=== PATIENT | male | born 1965 | race Caucasian/White ===

== ENCOUNTER 2022-07-16 12:31 | Emergency (ER) | payer MEDICAID, SELFPAY ==
[2022-07-16 12:35] VITALS: BP 135/83; PULSE 75; RESP 16; TEMP 36.7; O2SAT 99; BMI 24.4
--- NOTE | 2022-07-16 12:42 | ED_ITS ---
HPI - Allergic Reaction General Time Seen by Provider: 12:42 Date Seen: 07/16/22 Chief complaint: Allergic Reaction Stated complaint: Bee stings, allergic Time Seen by Provider: 07/16/22 12:33 Source: patient and RN notes reviewed Mode of arrival: ambulatory Limitations: no limitations History of Present Illness HPI narrative: Nursing staff alerted me to patient arrival with a bee sting reaction. He got stung by some type stinging insects that he thinks may have been some type of wasp/hornet/bee, stung him in the knuckle of his 3rd finger right hand. It is painful any feel some tingling and pressure going up the hand into the wrist now. 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 He started to feel a little sense of swelling in his throat but has noticed no voice changes, no difficulty breathing, no nausea vomiting, no rash. He had a prior spell where he was stung by a paper wasp and felt some chest tightness no throat closing. He used Benadryl at that time which resolved the symptoms. His DrAj Subsequently gave him an EpiPen at a later date. He was not seen for medical evaluation at that time. He did not have any Benadryl nor an EpiPen with him. Given he had had a prior reaction he had somebody drive him here. Onset (ago): minute(s) Exposure: insect bite Related Data Home Medications Medication Instructions Recorded Confirmed albuterol sulfate 90 mcg/actuation inhalation 07/16/22 aerosol inhaler (Ventolin HFA) buprenorphine 8 mg-naloxone 2 mg film 07/16/22 sublingual film (Suboxone) levothyroxine 100 mcg tablet mcg 07/16/22 levothyroxine 112 mcg tablet mcg 07/16/22 omeprazole 40 mg capsule,delayed mg 07/16/22 release rosuvastatin 10 mg tablet mg 07/16/22 Previous Rx's Medication Instructions Recorded epinephrine 0.3 mg/0.3 mL 0.3 mg (0.3 mL) IM Q5-15M PRN #2 ea 07/16/22 injection, auto-injector (EpiPen) prednisone 20 mg tablet 20 mg PO DAILY #3 tabs 07/16/22 Allergies Allergy/AdvReac Type Severity Reaction Status Date / Time bees Allergy Uncoded 07/16/22 12:39 Review of Systems Status of ROS Reports: 6 or more systems reviewed and unremarkable except as noted in History and below [facility] Social History Smoking Status: Current some day smoker How often do you have a drink containing alcohol: never AUDIT-C Alcohol total score: 0 Non-prescribed substance use: denies use Exam Const: Vital Signs, click to edit/add: Vital Signs - 24 hr 07/16/22 12:35 07/16/22 14:40 Temperature 98.1 F Pulse Rate [Right Pulse Oximeter] 75 58 L Respiratory Rate 16 18 Blood Pressure [Ri ght Upper Arm] 135/83 121/85 Pulse Oximetry 99 97 Oxygen Delivery Me thod Room Air Room Air Documenting provider has reviewed patient's vital signs: yes Common normals: no apparent distress, oriented x3, no limitations, healthy appearing, alert and well nourished General appearance: cooperative, comfortable and well kempt Nutritional appearance: thin HENMT: Common normals: normocephalic, head/scalp atraumatic, hearing grossly normal bilaterally, external nose normal, nasal mucous membranes and turbinates normal, moist oral mucous membranes, oropharynx normal, dentition normal and gingiva normal Head and scalp: normocephalic and atraumatic Nose: external nose normal and nasal mucous membranes and turbinates normal Eye: Common normals: PERRL, EOMs intact bilaterally, conjunctivae normal and no scleral icterus Conjunctiva: conjunctiva(e) normal Pupil: PERRL Neck & C-Spine: Common normals: full ROM, no lymphadenopathy, supple, no meningeal signs, no JVD and thyroid normal Thyroid: thyroid normal Resp: Common normals: normal respiratory effort, no retractions, no use of accessory muscles and clear to auscultation bilaterally Auscultation: clear to auscultation bilaterally Cardio: Common normals: no JVD, regular rate, regular rhythm, S1 normal heart sound, S2 normal heart sound, no gallops, no clicks and no murmurs Rate: regular rate Rhythm: regular rhythm Heart sounds: S1 normal and S2 normal GI: Common normals: Normal to inspection, nondistended, normoactive bowel sounds present, soft to palpation, non-tender, no hepatosplenomegaly and no masses Palpation: soft and no hepatosplenomegaly Extremity: Other: Has a little mild swelling around the PIP of the involved finger. No retained foreign body. No other swelling noted. There is just mildly pinkish color change. Neuro: Common normals: oriented x3 and gait normal Sensorium/orientation: alert Meningeal signs: no meningeal signs Speech: speech normal Psych: Appearance: well kempt Course Course Hospital Course: IV will be established, will give 25 mg IV Benadryl and watch him quite closely to make sure that that is sufficient. This time I do not feel he needs epinephrine but will have low threshold to provide this. Will get some ice on it this finger. Via on cardiac monitoring and pulse oximetry. Can re-dose with subsequent Benadryl if the 25 mg is not sufficient. He is wanting to get to baseline and work, thus, we will try to minimize sedative medicines for him. Reevaluation(s) Reevaluation #1: Patient re-evaluated, feeling slightly tired from the Benadryl but no further throat symptoms, no respiratory symptoms. Is icing his finger, is still sore at the bite yobany. Inspection of the area reveals no increased erythema or swelling. Still has good range of motion of the finger. Reviewed that he may be symptomatic with some discomfort at the area for hours to days. He is wondering when he can go. Reviewed that typically will observe anywhere from 2- 4 hours. 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 He did not require epinephrine. If he continues to show stability would consider allowing him to leave in 2 hours as he states he will not be far away and will not be alone. Time: 13:10 Reevaluation #2: Patient is stable without return of symptoms, requesting to go. Will check to make sure he does not need his EpiPen renewed. Will certainly do so if he needs this. Time: 14:37 Vital Signs Vital signs: Initial Vital Signs Temperature 98.1 F 07/16/22 12:35 Temperature Source Temporal Artery Scan 07/16/22 12:35 Pulse Rate 75 07/16/22 12:35 Pulse Rhythm 07/16/22 12:35 Respiratory Rate 16 07/16/22 12:35 Blood Pressure 135/83 07/16/22 12:35 Blood Pressure Mean 100 07/16/22 12:35 Blood Pressure Position Sitting 07/16/22 12:35 Pulse Oximetry 99 07/16/22 12:35 Oxygen Delivery Method 07/16/22 12:35 Vital Signs Temperature 98.1 F 07/16/22 12:35 Pulse Rate 75 07/16/22 12:35 Respiratory Rate 16 07/16/22 12:35 Blood Pressure 135/83 07/16/22 12:35 Pulse Oximetry 99 07/16/22 12:35 Oxygen Delivery Method 07/16/22 12:35 Temperature 98.1 F 07/16/22 12:35 Pulse Rate 58 L 07/16/22 14:40 Respiratory Rate 18 07/16/22 14:40 Blood Pressure 121/85 07/16/22 14:40 Pulse Oximetry 97 07/16/22 14:40 Oxygen Delivery Method 07/16/22 14:40 Critical Care Time Critical Care Time Critical Care Time: No Discharge Plan Discharge Clinical Impression: Allergic reaction, Insect bite Patient Disposition: Home, Self-Care Condition: Stable Instructions: Insect Bite or Sting (ED), Anaphylaxis (ED) Additional Instructions: Ice and elevate this finger for the next few days as able to to help decrease pain and swelling. Use Benadryl per package instructions while you are still having symptoms of swelling and discomfort, this will help block any subsequent allergic reaction. Take prednisone as prescribed, take with food. Prednisone will help diminish swelling an side effects of the insect sting. Review handouts, if any concerns or progression of symptomatology, please seek re- evaluation. Recommend carrying Benadryl as well as your EpiPen with you. Activity Level: Activity as Tolerated Prescriptions: New prednisone 20 mg tablet 20 mg PO DAILY Qty: 3 0RF epinephrine [EpiPen] 0.3 mg/0.3 mL auto-injector 0.3 mg IM Q5-15M PRNQty: 2 0RF Rx Instructions: do not exceed 3 doses per episode No Action omeprazole 40 mg capsule,delayed release(DR/EC) Label Comments: TAKE 1 CAPSULE BY MOUTH DAILY levothyroxine 100 mcg tablet Label Comments: TAKE 1 TABLET BY MOUTH EVERY MORNING BEFORE BREAKFAST. albuterol sulfate [Ventolin HFA] 90 mcg/actuation HFA aerosol inhaler INHALATION Label Comments: INHALE 2 PUFFS BY MOUTH EVERY 4 HOURS NEEDED levothyroxine 112 mcg tablet rosuvastatin 10 mg tablet buprenorphine-naloxone [Suboxone] 8-2 mg film Label Comments: PLACE 1 FILM UNDER TONGUE EVERY MORNING AND EVERY EVENING Follow Up/Referrals: Thang Baez MD [Primary Care Provider] - Stand Alone Forms: [employer] Info Instructions
[2022-07-16] MEDS: diphenhydrAMINE 50 MG/ML inj 25 MG IVP (12:50)
[2022-07-16 14:40] VITALS: BP 121/85; PULSE 58; RESP 18; O2SAT 97
== END 2022-07-16 14:49 | disposition home or self-care (01) ==
PROVIDERS: Emergency Provider Family Medicine; PCP Family Medicine
DX: S60.462A Insect bite (nonvenomous) of right middle finger, initial encounter (principal); T63.441A Toxic effect of venom of bees, accidental (unintentional), initial encounter; Y92.017 Garden or yard in single-family (private) house as the place of occurrence of the external cause
CPT/HCPCS: 96374; 99284; J1200

== ENCOUNTER 2022-09-12 15:07 | Outpatient (CLI) | payer MEDICAID, SELFPAY ==
[2022-09-12 11:43] LABS: Chloride* 102 mmol/L (96-114)
[2022-09-12 11:44] LABS: Potassium* 4.1 mmol/L (3.6-5.1); Sodium* 139 mmol/L (135-149)
[2022-09-12 11:46] LABS: Alanine Aminotransferase* 12 U/L (4-50); Alkaline Phosphatase* 67 U/L (40-150); Aspartate Amino Transferase* 24 U/L (12-35); Bilirubin Total* 0.5 mg/dL (0.1-1.5); Blood Urea Nitrogen* 13 mg/dL (7-30); Carbon Dioxide* 32 mmol/L (20-32); Cholesterol* 123 mg/dL (90-199); Estimated Glomerular Filt Rate 88 ml/min; Glucose* 103 mg/dL (60-115); Total Protein* 7.3 g/dL (6.0-8.3)
[2022-09-12 11:47] LABS: Calcium* 9.5 mg/dL (8.4-10.6); HDL Cholesterol* 47 mg/dL (>=40); LDL Cholesterol Calculated 58 mg/dL (<100); Triglycerides* 89 mg/dL (40-149)
[2022-09-12 12:17] LABS: PSA Screen* 0.44 ng/mL (0.10-4.00)
[2022-09-12 12:57] LABS: Free T4 Free Thyroxine* 1.31 ng/dL (0.70-1.85)
== END 2022-09-12 15:08 | disposition home or self-care (01) ==
PROVIDERS: PCP Family Medicine; Visit Provider Family Medicine
DX: Z00.00 Encounter for general adult medical examination without abnormal findings (principal); E78.5 Hyperlipidemia, unspecified; E03.9 Hypothyroidism, unspecified; Z12.5 Encounter for screening for malignant neoplasm of prostate
CPT/HCPCS: 80053; 80061; 84153; 84439; 84443

== ENCOUNTER 2023-10-08 07:20 | Outpatient (CLI) | payer MEDICAID, SELFPAY ==
--- OUTSIDE RECORDS SUMMARY | 2023-10-08 22:39 | XMS_ITS | Continuity of Care Document ---
Author Name Unknown Organization Z [facility] Address [address] [place] [address] Phone Care Team Providers Care Cigarette Catcher Name Role Phone Ben Patricia MD Unavailable Unavailab le Allergies, Adverse Reactions, Alerts Substance Reaction Status Criticality No Known allergies Procedures Procedure Date Office/Outpatient Visit,[facility], [facility] 2013 Office/Outpatient Visit,[facility], [facility] 2011 Advance Directives Directive Yes / No Effective Date File Name No Information Encounters Encounter Description Practice Location Reason(s) For Visit Diagnoses Date Provider Providers Copied on Encounter Z [facility], [address] [place] [address], [facility], tel:[phone] [facility] Jakob Green No Information 4 [place]. [facility], [address] [place] [address], [id number] , [place]. tel:[phone] Office/Outpat ient Visit,Est, Mod Z [facility], [address] [place] [address], [facility], [place] tel:[phone] [facility] No Information 4 Panmike Librado. [facility], [address], [id number] , [place]. tel:[phone] Referring Provider: Thang Hollis, [facility] [address], [address]. tel:[phone] Office/Outpat ient Visit,New, Mod Z [facility], [address], [place], [address], [place] tel:[phone] [facility] No Information 2 Sha [place]. [facility], [address], [address], [place], [place], [id number] , [place]. tel:[phone] Referring Provider: Thang Hollis, [facility] [address] [place] [address], [id number]. tel:[phone] Family History Family Member Type Diagnosis Age At Onset No Information Payers Payer name Insurance type Covered libertarian ID Authorgersona tiamara(s) Medical Assistance [facility] [id number] Social History Type Description Quantity Date Captured Comments Sex Male Smoking Status No Information Chief Complaint And Reason For Visit No Information Reason For Referral Reason For Referral No Information History Of Present Illness Encounter Date Complaint History Of Prese nt Illness No Information Functional Status Date Functional Assessmen t No Information Instructions Date Instruction Additional Infor mation No Information Assessments Type Assessment Date No Information Patient Care Teams Name Effective Dates (start - stop) Status Members No Information
--- OUTSIDE RECORDS SUMMARY | 2023-10-08 22:39 | XMS_ITS | Continuity of Care Document ---
Author Name Unknown Organization [facility] Address [address] [place] [address] Phone Care Team Providers Care Pharmacy Laboratory Technician Name Role Phone Yunier Greenwood MD Unavailable Unavailable Allergies, Adverse Reactions, Alerts Substance Reaction Status Criticality No Known Drug Allergies Active No I nformation Medications Medication Instructions Dosage Effective Dates (start - stop) Status Comments omeprazole 40 mg capsule,delayed release take 1 capsule by oral route every day before a meal 40 MG - Active Procedures Procedure Date Est Pt Eval 15 Min Pain Assessment And Follow Up Plan Docum ented Est Pt Eval 25 Min Pain Assessment And Follow Up Plan Docum ented Inj Anes Epidur; Lumb/sac 1 Le 15 Inj Anes Epidur; Lumb/sac 1 Le 15 Est Pt Eval 25 Min Pain Assessment And Follow Up Plan Docum ented Inj Anes Epidur; Lumb/sac 1 Le 14 Inj Anes Epidur; Lumb/sac 1 Le 14 Inj Anes Epidur; Lumb/sac 1 Le 14 Mod cs by same phys, 5 yrs + Est Pt Eval 25 Min Est Pt Eval 25 Min Inj Anes Epidur; Lumb/sac 1 Le 14 Inj Anes Epidur; Lumb/sac 1 Le 14 Inj Anes Epidur; Lumb/sac 1 Le 14 Epidurography Mod cs by same phys, 5 yrs + Psychotherapy, 60 minutes with patient o r family Psychotherapy, 60 minutes with patient o r family Psychotherapy, 60 minutes with patient o r family Psychotherapy, 60 minutes with patient o r family Psychiatric Diagnostic Evaluation Est Pt Eval 25 Min Phys Therap Eval Therapeutic Activities Offic/outpt E&m Estab Mod-hi 2 14 Offic/outpt E&m Estab Mod-hi 2 11 Offic/outpt E&m Estab Mod-hi 2 11 Lumbar MB single level Lumbar MB addl level Mod cs by same phys, 5 yrs + Fluoro Needle - Spine Marcaine (1 mL = 1 Unit) IV Admin Kit 1000 LR (Ringers) Offic/outpt E&m Estab Mod-hi 2 11 Drug Screen: Mx Drug Classes Offic/outpt E&m Estab Low-mod 1 Lo Osm Contr Mat (200-249mg) 1000 LR (Ringers) IV Admin Kit Inj Anes Facet Jt; Lumb/sac-3rd Level Mn Inj Anes Facet Jt; Lumb/sac-2nd Level Mn Inj Anes Facet Jt; Lumb/sac-1st Level Mn Mod cs by same phys, 5 yrs + Offic/outpt E&m Estab Mod-hi 2 11 Inj Anes Facet Jt; Lumb/sac-3rd Level Mn Inj Anes Facet Jt; Lumb/sac-1st Level Mn Inj Anes Facet Jt; Lumb/sac-2nd Level Mn Mod cs by same phys, 5 yrs + Lo Osm Contr Mat (200-249mg) Marcaine (1 mL = 1 Unit) 1000 LR (Ringers) IV Admin Kit Offic/outpt E&m Estab Low-mod 1 Offic/outpt E&m Estab Mod-hi 2 11 Offic Cons New/estab Mod 40 Mi 11 Inj Anes Facet Jt; Lumb/sac-3rd Level Ja Inj Anes Facet Jt; Lumb/sac-2nd Level Ja Inj Anes Facet Jt; Lumb/sac-1st Level Ja Mod cs by same phys, 5 yrs + Marcaine (1 mL = 1 Unit) Lo Osm Contr Mat (200-249mg) Intravenous infusion, for therapy, proph ylaxis, or Versed (1 Mg = 1 Unit) 1000 LR (Ringers) IV Admin Kit IV Start Kit Offic/outpt E&m Estab Mod-hi 2 11 1 Limb EMG Motor NCV W/F-wave Sensory NCV H-reflex Amp Study; Gastnem/so 11 Inj Anes Facet Jt; Lumb/sac-3rd Level De Inj Anes Facet Jt; Lumb/sac-1st Level De Inj Anes Facet Jt; Lumb/sac-2nd Level De Mod cs by same phys, 5 yrs + Depomedrol 80mg Marcaine (1 mL = 1 Unit) Intravenous infusion, for therapy, proph ylaxis, or IV Admin Kit IV Start Kit 1000 LR (Ringers) Fentanyl Citrate (2 ml = 1 Unit) 2009 Versed (1 Mg = 1 Unit) Offic/outpt E&m Estab Mod-hi 2 10 Offic/outpt E&m Estab Mod-hi 2 10 Epid/SAB Lumbosacral Epidurography Marcaine (1 mL = 1 Unit) Lo Osm Contr Mat (200-249mg) Depomedrol 80mg Needle Only Sterile Any Size Epidural Tray Offic Cons New/estab Mod-hi 60 10 Advance Directives Directive Yes / No Effective Date File Name No Information Encounters Encounter Description Practice Location Reason(s) For Visit Diagnoses Date Provider Providers Copied on Encounter [facility], [address], [place], [address], [place] tel:[phone] [facility] No Information 5 Krystyna Faye. [address], [place], [place], [address], [place]. tel:[phone] Referring Provider: Librado BAHENA, [address] [place], [address]. tel:[phone] Est Pt Eval 15 Min [facility], [facility], [address], [place], [address], [place] tel:[phone] [facility] No Information 5 Antwan Live. [address], [place], [place], [address], [place]. tel:[phone] Referring Provider: Librado BAHENA, [address] [place], [address]. tel:[phone] Est Pt Eval 25 Min [facility], [facility], [address], [place], [address], [place] tel:[phone] [facility] No Information 5 Leila Calle. [address], [place], [address], [place]. tel:[phone] Referring Provider: Librado BAHENA, [address] [facility], [place], [address]. tel:[phone] [facility], [address], [place], [address], [place] tel:[phone] [facility] No Information 5 [facility]. [address], [place], [place], [address], [place]. tel:[phone] Referring Provider: Yunier Faye, [address], [place], [address] . tel:[phone] [facility], [facility], [address], [place], [place], [address], [place] tel:[phone] [facility] [place] No Information 5 Krystyna Faye. [address], [place], [place], [address], [place]. tel:[phone] Referring Provider: Librado BAHENA, [address] [facility] [place], [place], [address]. tel:[phone] Est Pt Eval 25 Min [facility], [facility], [address], [place], [place], [address], [place] tel:[phone] [facility] No Information 5 Leila Calle. [address], [address], [place], [address], [place]. tel:[phone] Referring Provider: Librado BAHENA, [address] [facility] [place], [place], [address]. tel:[phone] [facility], [address], [place], [address], [place] tel:[phone] [facility] [place] No Information 4 Krystyna Faye. [address], [place], [place], [address], [place]. tel:[phone] Referring Provider: Yunier Faye, [address], [place], [address] . tel:[phone] [facility], [address], [place], [place], [address], [place] tel:[phone] [facility] [place] No Information 4 Krystyna Faye. [address], [place], [place], [address], [place]. tel:[phone] Referring Provider: Librado BAHENA, [address] [facility] [place], [place], [address]. tel:[phone] Est Pt Eval 25 Min [facility], [address], [place], [place], [address], [place] tel:[phone] [facility] No Information 4 Ricki Wolf. [address] [place], [address], [place]. Referring Provider: Librado BAHENA, [address] [facility] [place], [place], [address]. tel:[phone] Est Pt Eval 25 Min [facility], [address], [place], [place], [address], [place] tel:[phone] [facility] No Information 4 Ricki Wolf. [address] [place], [address], [place]. Referring Provider: Librado BAHENA, [address] [facility], [place], [address]. tel:[phone] [facility], [address], [place], [address], [place] tel:[phone] [facility] [place] No Information 4 Krystyna Faye. [address], [place], [place], [address], [place]. tel:[phone] Referring Provider: Yunier Faye, [address], [place], [address] . tel:[phone] [facility], [facility], [address], [place], [place], [address], [place] tel:[phone] [facility] [place] No Information 4 Krystyna Faye. [address], [place], [place], [address], [place]. tel:[phone] Referring Provider: Librado BAHENA, [address] [facility] [place], [place], [address]. tel:[phone] Psychotherapy , 60 minutes with patient or family [facility], [address], [place], [place], [address], [place] tel:[phone] [facility] No Information 4 Stan Milo. [address], [place], [place], [address], [place]. tel:[phone] Referring Provider: Librado BAHENA, [address] [facility] [place], [place], [address]. tel:[phone] Psychotherapy , 60 minutes with patient or family [facility], [facility], [address], [place], [place], [address], [place] tel:[phone] [facility] No Information 4 Stan Milo. [address], [place], [place], [address], [place]. tel:[phone] Referring Provider: Librado BAHENA, [address] [facility], [place], [address]. tel:[phone] Psychotherapy , 60 minutes with patient or family [facility], [address], [place], [place], [address], [place] tel:[phone] [facility] No Information 0 -201 4 Stan Milo. [address], [place], [place], [address], [place]. tel:[phone] Referring Provider: Librado BAHENA, [address] [facility], [place], [address]. tel:[phone] Psychotherapy , 60 minutes with patient or family [facility], [address], [place], [place], [address], [place] tel:[phone] [facility] No Information 4 Stan Milo. [address], [place], [place], [address], [place]. tel:[phone] Referring Provider: Librado BAHENA, [address] [facility], [place], [address]. tel:[phone] Psychiatric Diagnostic Evaluation [facility], [address], [place], [place], [address], [place] tel:[phone] [facility] No Information 4 Stan Milo. [address], [place], [place], [address], [place]. tel:[phone] Referring Provider: Librado BAHENA, [address] [facility], [place], [address]. tel:[phone] Est Pt Eval 25 Min [facility], [facility], [address], [place], [place], [address], [place] tel:[phone] [facility] No Information 4 No Information Referring Provider: Librado BAHENA, [address] [facility] [place], [place], [address]. tel:[phone] [facility], [facility], [address], [place], [place], [address], [place] tel:[phone] [facility] No Information Kandis Miller. [address], [place], [place], [address], [place]. tel:[phone] Referring Provider: Librado BAHENA, [address] [facility], [place], [address]. tel:[phone] Offic/outpt E&m Estab Mod-hi 2 [facility], [facility], [address], [place], [place], [address], [place] tel:[phone] [facility] No Information Ricki Wolf. [address] [place], [address], [place]. Referring Provider: Librado BAHENA, [address] [place], [address]. tel:[phone] Offic/outpt E&m Estab Mod-hi 2 [facility], [facility], [address], [place], [place], [address], [place] tel:[phone] [facility] No Information 1 Ricki Wolf. [address] [place], [address], [place]. Referring Provider: Charles Cordova, [address] [place], [address]. tel:[phone] Offic/outpt E&m Estab Mod-hi 2 [facility], [address], [place], [place], [address], [place] tel:[phone] [facility] No Information 1 Tam Leslie. [address], [place], [address], [place]. tel:[phone] Referring Provider: Charles Cordova, [address] [place], [address]. tel:[phone] [facility], [address], [place], [place], [address], [place] tel:[phone] [facility] No Information 1 Krystyna Faye. [address], [place], [place], [address], [place]. tel:[phone] Referring Provider: Charles Cordova, [address] [place], [address]. tel:[phone] Offic/outpt E&m Estab Mod-hi 2 [facility], [address], [place], [place], [address], [place] tel:[phone] [facility] No Information 1 Ricki Wolf. [address], [place], [address], [place]. Referring Provider: Charles Cordova, [address] [place], [address]. tel:[phone] Offic/outpt E&m Estab Low-mod [facility], [address] [facility] [address], [place], [place], [address], [place] tel:[phone] [facility] No Information 1 Ricki Wolf. [address] [place] [address], [address], [place]. Referring Provider: Charles Cordova, [address] [place] [address], [address]. tel:[phone] [facility], [facility], [address] [facility] [address], [place], [address], [place] tel:[phone] [facility] No Information 1 Krystyna Faye. [address], [place], [place], [address], [place]. tel:[phone] Referring Provider: Charles Cordova, [address] [place] [address], [address]. tel:[phone] Offic/outpt E&m Estab Mod-hi 2 [facility], [facility], [address], [address], [place] tel:[phone] [facility] No Information 1 Ricki Wolf. [address] [place] [address], [address], [place]. Referring Provider: Charles Cordova, [address] [place] [address], [address]. tel:[phone] Offic/outpt E&m Estab Low-mod [facility], [facility], [address] [facility] [address], [place], [place], [address], [place] tel:[phone] [facility] No Information 1 Ricki oWlf. [address] [place] [address], [address], [place]. Referring Provider: Charles Cordova, [address] [place] [address], [address]. tel:[phone] Offic/outpt E&m Estab Mod-hi 2 [facility], [facility], [address] [place], [address], [place] tel:[phone] [facility] No Information 1 Ricki Wolf. [address] [place] [address], [address], [place]. Referring Provider: Charles Cordova, [address] [place] [address], [address]. tel:[phone] Offic Cons New/estab Mod 40 Mi [facility], [facility], [address], [place], [place], [address], [place] tel:[phone] [facility] No Information 1 Ricki Wolf. [address] [place] [address], [address], [place]. Referring Provider: Charles Cordova, [address] [place] [address], [address]. tel:[phone] [facility], [facility], [address], [place], [place], [address], [place] tel:[phone] [facility] No Information 1 Krystyna Faye. [address], [place], [place], [address], [place]. tel:[phone] Referring Provider: Charles Cordova, [address] [place] [address], [address]. tel:[phone] Offic/outpt E&m Estab Mod-hi 2 [facility], [facility], [address] [facility] [address], [place], [place], [address], [place] tel:[phone] [facility] No Information 1 Ricki Wolf. [address] [place] [address], [address], [place]. Referring Provider: Charles Cordova, [address] [place] [address], [address]. tel:[phone] [facility], [facility], [address], [place], [place], [address], [place] tel:[phone] [facility] No Information 1 Ricki Milligan Luciano. [address] [place], [address], [place]. Referring Provider: Charles Cordova, [address] [place] [address], [address]. tel:[phone] [facility], [facility], [address], [place], [place], [address], [place] tel:[phone] [facility] No Information 0 Krystyna Faye. [address] [facility] [address], [place], [place], [address], [place]. tel:[phone] Referring Provider: Charles Cordova, [address] [place] [address], [address]. tel:[phone] Offic/outpt E&m Estab Mod-hi 2 [facility], [facility], [address] [facility] [address], [place], [place], [address], [place] tel:[phone] [facility] No Information 0 Ricki Milligan Luciano. [address] [place] [address], [address], [place]. Referring Provider: Charles Cordova, [address] [place] [address], [address]. tel:[phone] Offic/outpt E&m Estab Mod-hi 2 [facility], [facility], [address] [facility] [address], [place], [address], [place] tel:[phone] [facility] No Information 0- 0 Ricki Wolf. [address] [place] [address], [address], [place]. Referring Provider: Charles Cordova, [address] [place], [address]. tel:[phone] [facility], [address] [facility] [address], [place], [place], [address], tel:[phone] [facility] No Information 0-201 0 Krystyna Faye. [address], [place], [place], [address], [place]. tel:[phone] Referring Provider: Charles Cordova, [address] [place] [address], [address]. tel:[phone] Offic Cons New/estab Mod-hi 60 [facility], [address] [facility] [address], [place], [place], [address], tel:[phone] [facility] No Information 7-201 0 Ricki Chel Luciano. [address] [place] [address], [address], [place]. Referring Provider: Charles Cordova, [address] [place] [address], [address]. tel:[phone] Family History Family Member Type Diagnosis Age At Onset N/A Problem (finding) No Significant Family H istory Payers Payer name Insurance type Covered constitution party ID Authoriza tiamara(s) [facility]-Medicaid [id number] Social History Type Description Quantity Date Captured Comments Sex Male Smoking Status No Information Chief Complaint And Reason For Visit No Information Reason For Referral Reason For Referral No Information Plan Of Treatment Date Type Action Status Future Order: Lab Order Point Of Care Testing (with THC) (POCT-THC), Collected on: Ordered History Of Present Illness Encounter Date Complaint History Of Prese nt Illness No Information Functional Status Date Functional Assessmen t No Information Instructions Date Instruction Additional Infor vandanaion Epidural Steroid Injection educa tion Assessments Type Assessment Date No Information Patient Care Teams Name Effective Dates (start - stop) Status Members No Information
== END 2023-10-08 07:21 | disposition home or self-care (01) ==
LOC: NFLDREF 22:37
PROVIDERS: PCP Family Medicine; Referring Provider Family Medicine; Visit Provider Family Medicine
DX: E03.9 Hypothyroidism, unspecified (principal); E78.5 Hyperlipidemia, unspecified
CPT/HCPCS: 80053; 80061; 84439; 84443

== ENCOUNTER 2023-11-21 08:02 | Outpatient (CLI) | payer MEDICAID, SELFPAY ==
--- OUTSIDE RECORDS SUMMARY | 2023-11-21 08:04 | XMS_ITS | Continuity of Care Document ---
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 [address], [place], [place], [address], [place]. tel:[phone] Referring Provider: Librado BAHENA, [address] [place], [address]. tel:[phone] Est Pt Eval 15 Min [facility], [facility], [address] [facility] [address], [place], [address], [place] tel:[phone] [facility] No Information 5 Antwan Live. [address], [address], [place], [place], [address], [place]. tel:[phone] Referring Provider: Librado BAHENA, [address] [place], [address]. tel:[phone] Est Pt Eval 25 Min [facility], [facility], [address], [place], [address], [place] tel:[phone] [facility] No Information 5 Leila Calle. [address] [facility], [place], [address], [place]. tel:[phone] Referring Provider: Librado BAHENA, [address] [facility], [place], [address]. tel:[phone] [facility], [address], [place], [address], [place] tel:[phone] [facility] No Information 5 [facility]. [address], [place], [place], [address], [place]. tel:[phone] Referring Provider: Yunier Faye, [address], [place], [address] . tel:[phone] [facility], [facility], [address], [place], [place], [address], [place] tel:[phone] [facility] [place] No Information 5 Krystyna Faye. [address], [place], [place], [address], [place]. tel:[phone] Referring Provider: Librado BAHENA, [address] [facility] [place], [place], [address]. tel:[phone] Est Pt Eval 25 Min [facility], [facility], [address], [place], [place], [address], [place] tel:[phone] [facility] No Information 5 Leila Calle. [address], [place], [place], [address], [place]. tel:[phone] Referring Provider: Librado BAHENA, [address] [facility] [place], [place], [address]. tel:[phone] [facility], [address], [place], [address], [place] tel:[phone] [facility] No Information 4 Krystyna Faye. [address], [place], [place], [address], [place]. tel:[phone] Referring Provider: Yunier Faye, [address], [place], [address] . tel:[phone] [facility], [address], [place], [place], [address], [place] tel:[phone] [facility] [place] No Information 4 Krystyna Faye. [address], [place], [place], [address], [place]. tel:[phone] Referring Provider: Librado BAHENA, [address] [facility] [place], [place], [address]. tel:[phone] Est Pt Eval 25 Min [facility], [address], [place], [place], [address], [place] tel:[phone] [facility] No Information 4 Ricki Wolf. [address] [place], [address], [place]. Referring Provider: Librado BAHENA, [address] [facility] [place], [place], [address]. tel:[phone] Est Pt Eval 25 Min [facility], [address], [place], [place], [address], [place] tel:[phone] [facility] No Information 4 Ricki Wolf. [address] [place], [address], [place]. Referring Provider: Librado BAHENA, [address] [facility], [place], [address]. tel:[phone] [facility], [address], [place], [address], [place] tel:[phone] [facility] [place] No Information 4 Krystyna Faye. [address], [place], [place], [address], [place]. tel:[phone] Referring Provider: Yunier Faye, [address], [place], [address] . tel:[phone] [facility], [facility], [address], [place], [place], [address], [place] tel:[phone] [facility] [place] No Information 4 Krystyna Faye. [address], [place], [place], [address], [place]. tel:[phone] Referring Provider: Librado BAHENA, [address] [facility] [place], [place], [address]. tel:[phone] Psychotherapy , 60 minutes with patient or family [facility], [address], [place], [place], [address], [place] tel:[phone] [facility] No Information 4 Stan Milo. [address], [place], [place], [address], [place]. tel:[phone] Referring Provider: Librado BAHENA, [address] [facility] [place], [place], [address]. tel:[phone] Psychotherapy , 60 minutes with patient or family [facility], [facility], [address], [place], [place], [address], [place] tel:[phone] [facility] No Information 4 Stan Milo. [address], [place], [place], [address], [place]. tel:[phone] Referring Provider: Librado BAHENA, [address] [facility], [place], [address]. tel:[phone] Psychotherapy , 60 minutes with patient or family [facility], [address], [place], [place], [address], [place] tel:[phone] [facility] No Information 0 -201 4 Stan Milo. [address], [place], [place], [address], [place]. tel:[phone] Referring Provider: Librado BAHENA, [address] [facility], [place], [address]. tel:[phone] Psychotherapy , 60 minutes with patient or family [facility], [address], [place], [place], [address], [place] tel:[phone] [facility] No Information 4 Stan Milo. [address], [place], [place], [address], [place]. tel:[phone] Referring Provider: Librado BAHENA, [address] [facility], [place], [address]. tel:[phone] Psychiatric Diagnostic Evaluation [facility], [address], [place], [place], [address], [place] tel:[phone] [facility] No Information 4 Stan Milo. [address], [place], [place], [address], [place]. tel:[phone] Referring Provider: Librado BAHENA, [address] [facility], [place], [address]. tel:[phone] Est Pt Eval 25 Min [facility], [facility], [address], [place], [place], [address], [place] tel:[phone] [facility] No Information 4 No Information Referring Provider: Librado BAHENA, [address] [facility] [place], [place], [address]. tel:[phone] [facility], [facility], [address], [place], [place], [address], [place] tel:[phone] [facility] No Information Kandis Miller. [address], [place], [place], [address], [place]. tel:[phone] Referring Provider: Librado BAHENA, [address] [facility], [place], [address]. tel:[phone] Offic/outpt E&m Estab Mod-hi 2 [facility], [facility], [address], [place], [place], [address], [place] tel:[phone] [facility] No Information Ricki Wolf. [address] [place], [address], [place]. Referring Provider: Librado BAHENA, [address] [place], [address]. tel:[phone] Offic/outpt E&m Estab Mod-hi 2 [facility], [facility], [address], [place], [place], [address], [place] tel:[phone] [facility] No Information 1 Ricki Wolf. [address] [place], [address], [place]. Referring Provider: Charles Cordova, [address] [place], [address]. tel:[phone] Offic/outpt E&m Estab Mod-hi 2 [facility], [address], [place], [place], [address], [place] tel:[phone] [facility] No Information 1 Tam Leslie. [address], [place], [address], [place]. tel:[phone] Referring Provider: Charles Cordova, [address] [place], [address]. tel:[phone] [facility], [address], [place], [place], [address], [place] tel:[phone] [facility] No Information 1 Krystyna Faye. [address], [place], [place], [address], [place]. tel:[phone] Referring Provider: Charles Cordova, [address] [place], [address]. tel:[phone] Offic/outpt E&m Estab Mod-hi 2 [facility], [address], [place], [place], [address], [place] tel:[phone] [facility] No Information 1 Ricki Wolf. [address] [facility], [place], [address], [place]. Referring Provider: Charles Cordova, [address] [place], [address]. tel:[phone] Offic/outpt E&m Estab Low-mod [facility], [address] [facility] [address], [place], [place], [address], [place] tel:[phone] [facility] No Information 1 Ricki Wolf. [address] [place] [address], [address], [place]. Referring Provider: Charles Cordova, [address] [place] [address], [address]. tel:[phone] [facility], [facility], [address] [facility] [address], [place], [address], [place] tel:[phone] [facility] No Information 1 Krystyna Faye. [address], [place], [place], [address], [place]. tel:[phone] Referring Provider: Charles Cordova, [address] [place] [address], [address]. tel:[phone] Offic/outpt E&m Estab Mod-hi 2 [facility], [facility], [address], [address], [place] tel:[phone] [facility] No Information 1 Ricki Wolf. [address] [place] [address], [address], [place]. Referring Provider: Charles Cordova, [address] [place] [address], [address]. tel:[phone] Offic/outpt E&m Estab Low-mod [facility], [facility], [address] [facility] [address], [place], [place], [address], [place] tel:[phone] [facility] No Information 1 Ricki Wolf. [address] [place] [address], [address], [place]. Referring Provider: Charles Cordova, [address] [place] [address], [address]. tel:[phone] Offic/outpt E&m Estab Mod-hi 2 [facility], [facility], [address] [place], [place], [address], [place] tel:[phone] [facility] No Information 1 Ricki Wolf. [address] [place] [address], [address], [place]. Referring Provider: Charles Cordova, [address] [place] [address], [address]. tel:[phone] Offic Cons New/estab Mod 40 Mi [facility], [facility], [address], [place], [place], [address], [place] tel:[phone] [facility] No Information 1 Ricki Wolf. [address] [place] [address], [address], [place]. Referring Provider: Charles Cordova, [address] [place] [address], [address]. tel:[phone] [facility], [facility], [address], [place], [place], [address], [place] tel:[phone] [facility] No Information 1 Krystyna Faye. [address], [place], [place], [address], [place]. tel:[phone] Referring Provider: Charles Cordova, [address] [place] [address], [address]. tel:[phone] Offic/outpt E&m Estab Mod-hi 2 [facility], [facility], [address] [facility] [address], [place], [place], [address], [place] tel:[phone] [facility] No Information 1 Ricki Wolf. [address] [place] [address], [address], [place]. Referring Provider: Charles Cordova, [address] [place] [address], [address]. tel:[phone] [facility], [facility], [address] [facility] [address], [place], [place], [address], [place] tel:[phone] [facility] No Information 1 Ricki Milligan Luciano. [address] [place], [address], [place]. Referring Provider: Charles Cordova, [address] [place] [address], [address]. tel:[phone] [facility], [facility], [address], [place], [place], [address], [place] tel:[phone] [facility] No Information 0 Krystyna Faye. [address] [facility] [address], [place], [place], [address], [place]. tel:[phone] Referring Provider: Charles Cordova, [address] [place] [address], [address]. tel:[phone] Offic/outpt E&m Estab Mod-hi 2 [facility], [facility], [address] [facility] [address], [place], [place], [address], [place] tel:[phone] [facility] No Information 0 Ricki Milligan Luciano. [address] [place] [address], [address], [place]. Referring Provider: Charles Cordova, [address] [place] [address], [address]. tel:[phone] Offic/outpt E&m Estab Mod-hi 2 [facility], [facility], [address] [facility] [address], [address], [place] tel:[phone] [facility] No Information 0- 0 Ricki Wolf. [address] [place] [address], [address], [place]. Referring Provider: Charles Cordova, [address] [place], [address]. tel:[phone] [facility], [address] [facility] [address], [place], [place], [address], tel:[phone] [facility] No Information 0-201 0 Krystyna Faye. [address], [place], [place], [address], [place]. tel:[phone] Referring Provider: Charles Cordova, [address] [place] [address], [address]. tel:[phone] Offic Cons New/estab Mod-hi 60 [facility], [address] [facility] [address], [place], [place], [address], tel:[phone] [facility] No Information 7-201 0 Ricki Chel Luciano. [address] [place] [address], [address], [place]. Referring Provider: Charles Cordova, [address] [place] [address], [address]. tel:[phone] Family History Family Member Type Diagnosis Age At Onset N/A Problem (finding) No Significant Family H istory Payers Payer name Insurance type Covered democrat ID Authoriza tiamara(s) U [facility] [id number] Social History Type Description Quantity Date Captured [...]
--- OUTSIDE RECORDS SUMMARY | 2023-11-21 08:04 | XMS_ITS | Continuity of Care Document ---
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 Name Role Phone Ben Patricia MD Unavailable Unavailab le Allergies, Adverse Reactions, Alerts Substance Reaction Status Criticality No Known allergies Procedures Procedure Date Office/Outpatient Visit,[facility], [facility] 2013 Office/Outpatient Visit,[facility], [facility] 2011 Advance Directives Directive Yes / No Effective Date File Name No Information Encounters Encounter Description Practice Location Reason(s) For Visit Diagnoses Date Provider Providers Copied on Encounter Z [facility], [address] [place] [address], [facility], tel:[phone] [facility] Jakob Green No Information 4 Belem hampton. [facility], [address] [place] [address], [id number] , [place]. tel:[phone] Office/Outpat ient Visit,Est, Mod Z [facility], [address] [place] [address], [facility], [place] tel:[phone] [facility] No Information 4 Panmike Librado. [facility], [address], [id number] , [place]. tel:[phone] Referring Provider: Thang Hollis, [facility] [address], [address]. tel:[phone] Office/Outpat ient Visit,New, Mod Z [facility], [address], [place], [address], [place] tel:[phone] [facility] No Information 2 Sha Almonte. [facility], [address], [place], [place], [address] , [place]. tel:[phone] Referring Provider: Thang Hollis, [facility] [address] [place] [address], [address]. tel:[phone] Family History Family Member Type Diagnosis Age At Onset No Information Payers Payer name Insurance type Covered democrat ID Authorgersona tiamara(s) Medical Assistance [facility] [id number] Social History Type Description Quantity Date Captured [...]
--- NOTE | 2023-11-21 08:15 | CRLHL7_ITS ---
For Patients: As a result of the Century Cures Act, medical imaging exams and procedure reports are released immediately into your electronic medical record. You may view this report before your referring provider. If you have questions, please contact your health care provider. Indication: Headache. Family history of brain cancer Technique: Multiplanar, multisequence MRI of the brain obtained without and with contrast. A total of 20 mL of Dotarem IV contrast was administered. Comparison: MRI brain 11/13/2019 Findings: The ventricles and cortical sulci appear within normal limits for age. No hydrocephalus or herniation. No acute/subacute ischemia, intracranial hemorrhage or abnormal extra-axial fluid collection. White matter signal appears within normal limits for age. No suspicious enhancement identified. Midline structures are unremarkable. Major expected intracranial flow voids are visualized. Bone marrow signal is unremarkable. No suspicious findings in the regional soft tissues. Paranasal sinuses and mastoid air cells have a normal signal. Orbits are unremarkable. Impression: 1. Unremarkable MRI brain. No evidence of acute intracranial abnormality or suspicious enhancing lesion. Dictated by Brenna Boykin MD @ 11/21/2023 11:33:01 AM (Electronically Signed)
== END 2023-11-21 08:03 | disposition home or self-care (01) ==
LOC: MRI 08:03
PROVIDERS: PCP Family Medicine; Visit Provider Family Medicine
DX: R51.9 Headache, unspecified (principal)
CPT/HCPCS: 70553; A9575

== ENCOUNTER 2024-09-08 07:34 | Outpatient (CLI) | payer MEDICAID, SELFPAY ==
--- OUTSIDE RECORDS SUMMARY | 2024-09-08 15:56 | XMS_ITS | Clinical Summary ---
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 8 tablet 12/12/2018 Active buprenorphine-naloxon e, 8 mg-2 mg, (SUBOXONE) film sublingual Three Times A Day Active PROAIR HFA 90 mcg/actuation inhaler Inhale 2 Puffs by mouth every 4 hours if needed. 2 06/01/2019 Active EPINEPHrine (EPIPEN) 0.3 mg/0.3 mL injection Once 06/19/2018 Active polyethylene glycoL (MIRALAX) 17 gram/dose powder Take by mouth. 04/09/2017 Acti ve omeprazole (PRILOSEC) 40 mg Delayed-Release capsule TAKE ONE CAPSULE DAILY FOR ACID REFLUX 2 05/16/2019 Active tadalafiL (CIALIS;ADCIRCA) 20 mg tabletIndications:Ere ctile dysfunction, unspecified erectile dysfunction type Take 1 tablet by mouth once daily if needed for Erectile Dysfunction. Take 30 minutes before sexual activity. 10 tablet 11 08/29/2020 Active polyethylene glycol-electrolyte (GOLYTELY) 236-22.74-6.74 -5.86 gram suspensionIndications :Encounter for screening colonoscopy Drink 3 quarts the day before procedure and 1 quart 6 hours before procedure. 4000 mL 08/08/2021 Active levothyroxine (SYNTHROID) 100 mcg tablet -Sat 100mcg daily, Saturday 200mcg 0 12/08/2021 Active rosuvastatin (CRESTOR) 10 mg tabletIndications:Cor onary artery disease, unspecified vessel or lesion type, unspecified whether angina present, unspecified whether hopi or transplanted heart Take 1 Tablet (10 mg) by mouth once daily with evening meal. Overdue for annual Cardiology visit. Call [phone] to schedule. 90 Tablet 03/28/2023 Active Active Problems Problem Noted Date Diagnosed Date Colon polyp 08/18/2021 Overview (08/18/2021): Colonoscopy 07/2021 3-TA, repeat in 5 years with propofol Social History Tobacco Use Types Packs/Day Years Used Date Smoking Tobacco: Every Day Cigarettes Smokeless Tobacco: Never Tobacco Cessation:Ready to Q uit: Yes; Counseling Given: Yes Alcohol Use Standard Drinks/Week Comments Not Currently 0 (1 standard drink = 0.6 oz pur e alcohol) Social Connections Answer Date Recorded Frequency of Communication with Friends and Fami ly Not on file 11/25/2021 Financial Resource Strain Answer Date R ecorded Difficulty of Paying Living Expenses Not on file 11/25/2021 Difficulty of Paying Living Expenses Not on file 11/25/2021 Sex and Gender Information Value Date Recorded Sex Assigned at Not on file Gender Identity Not on file Sexual Orientation Not on file Obstetrics History Last Filed Vital Signs Vital Sign Reading Time Taken Comments Blood Pressure 110/73 12/19/2021 1:44 PM MANAGER OF DATA Pulse 60 12/19/2021 1:44 PM MANAGER OF DATA Temperature - - Respiratory Rate 18 08/29/2020 3:42 PM CDT Oxygen Saturation 99% 06/23/2021 12:52 PM CDT Inhaled Oxygen Concentration - - Weight 80.7 kg (178 lb) 12/08/2021 8:10 AM MANAGER OF DATA Height 175.3 cm (5' 9) 12/19/2021 1:44 PM MANAGER OF DATA Body Mass Index 26.29 12/08/2021 8:10 AM MANAGER OF DATA Plan of Treatment Health Maintenance Due Date Last Done Comments Tdap 1976 Depression screening for age 12+ 1977 HIV for age 15-65 1980 Hepatitis C screening for ag e 18-79 1983 Tetanus booster 1985 Zoster (shingles) series for age 50+ (1 of 2) 2015 BMI (ht and wt on same day) for age 18+ 12/08/2022 12/08/2021, 06/23/2021 COVID-19 vaccine series (2023- season) 2024 03/04/2021, 02/11/2021 Influenza for age 50-64 07/26/2024 Colonoscopy through age 75 08/14/2026 08/14/2021 Lipids for age 45-75 03/16/2027 03/16/2022, 12/19/2021, 12/19/2021 Pneumococcal series for age 6-64 Aged Out No longer eligible b ased on patient's age to complete this topic Procedures Procedure Name Priority Date/Time Associated Diagnosis Comments LIPID PANEL W REFLEX MEASURED LDL Routine 03/16/2022 8:51 AM CDT Coronary artery disease, unspecified vessel or lesion type, unspecified whether angina present, unspecified whether hopi or transplanted heart from Last 3 Months or Most Recently Relevant to Health Maintenance Results * (ABNORMAL) LIPID PANEL W REFLEX MEASURED LDL (03/16/2022 8:51 AM CDT) CHOLESTEROL,TOTAL 104 100 - 199 mg/dL 03/16/2022 5:13 PM CDT [facility] TRIGLYCERIDES 69 <150 mg/dL 03/16/2022 5:13 PM CDT [facility] HDL CHOLESTEROL 40(L) >40 mg/dL 5:13 PM CDT [facility] NON-HDL CHOLESTEROL 64 <145 mg/dl 03/16/2022 5:13 PM CDT [facility] CHOL/HDL RATIO 2.60 <4.50 03/16/2022 5:13 PM CDT [facility] LDL CHOLESTEROL 50 <=130 mg/dL 03/16/2022 5:13 PM CDT [facility] VLDL CHOLESTEROL 14 <=30 mg/dL 03/16/2022 5:13 PM CDT [facility] PROVIDER ORDERED STATUS FASTING 03/16/2022 5:13 PM CDT [facility] Blood BLOOD SPECIMEN / Unknown Venipuncture / Unknown 03/16/2022 8:51 AM CDT 03/16/2022 8:52 AM CDT Tima Escobar MD CHEMISTRY [facility] [address] [place] [address], from Last 3 Months or Most Recently Relevant to Health Maintenance Care Teams Returned Goods Inspector Relationship Specialty Start Date End Date Thang Baez MD [address] [place] [phone] PCP - General 12/12/18
--- OUTSIDE RECORDS SUMMARY | 2024-09-08 15:57 | XMS_ITS | Continuity of Care Document ---
Author Organization [facility] Address [address] [place] [address] Phone Care Team Providers Care Cardiac Surgeon Name Role Phone Ben Patricia MD Unavailable Unavailab le Allergies, Adverse Reactions, Alerts Substance Reaction Status Criticality No Known allergies Procedures Procedure Date Office/Outpatient Visit,[facility], Mod 2013 Office/Outpatient Visit,[facility], [facility] 2011 Advance Directives Directive Yes / No Effective Date File Name No Information Encounters Encounter Description Practice Location Reason(s) For Visit Diagnoses Date Provider Providers Copied on Encounter [facility], [address] [place] [address], [facility], tel:[phone] [facility] Jakob Green No Information 4 [place]. [facility], [address] [place] [address], [address], [id number] , [place]. tel:[phone] Office/Outpat ient Visit,Est, Mod [facility], [address] [place], [place] [address]ite [address] [place] [address], [facility], tel:[phone] [facility] No Information 4 Jose Elias Pavon. [facility], [address], [id number] , [place]. tel:[phone] Referring Provider: Thang Hollis, [facility] [address], [address]. tel:[phone] Office/Outpat ient Visit,New, Mod Z [facility], [address], [place], [address], [place] tel:[phone] [facility] No Information 201 [address] Sha [place]. [facility], [address], [address], [place], [place], [id number] , [place]. tel:[phone] Referring Provider: Thang Hollis, [facility] [address], [address]. tel:[phone] Family History Family Member Type Diagnosis Age At Onset No Information Payers Payer name Insurance type Covered alliance party ID Authorgersona tiamara(s) Medical Assistance [facility] [id number] Social History Type Description Quantity Date Captured [...]
== END 2024-09-08 07:35 | disposition home or self-care (01) ==
LOC: NFLDREF 15:55
PROVIDERS: PCP Family Medicine; Referring Provider Family Medicine; Visit Provider Family Medicine
DX: E03.9 Hypothyroidism, unspecified (principal); E78.5 Hyperlipidemia, unspecified; R63.5 Abnormal weight gain
CPT/HCPCS: 80053; 80061; 82533; 84439; 84443

== ENCOUNTER 2024-10-12 07:52 | Outpatient (CLI) | payer MEDICAID, SELFPAY ==
--- OUTSIDE RECORDS SUMMARY | 2024-10-14 13:22 | XMS_ITS | Clinical Summary ---
Author Organization [employer] [facility] Address [place], [place] [address] Care Team Providers Care Hospital Plan Administrator Name Role Phone Thang Baez MD Primary Care Provider [phone] Allergies Active Allergy Reactions Criticality Noted Date [...] type, unspecified whether angina present, unspecified whether [place] or transplanted heart Take 1 Tablet (10 mg) by mouth once daily with evening meal. Overdue for annual Cardiology visit. Call [phone] to schedule. 90 Tablet 03/28/2023 Active Active [...] Comments Blood Pressure 110/73 12/19/2021 1:44 PM PHOTOENGRAVING PROOFER Pulse 60 12/19/2021 1:44 PM PHOTOENGRAVING PROOFER Temperature - - Respiratory Rate 18 08/29/2020 3:42 PM CDT Oxygen Saturation 99% 06/23/2021 12:52 PM CDT Inhaled Oxygen Concentration - - Weight 80.7 kg (178 lb) 12/08/2021 8:10 AM PHOTOENGRAVING PROOFER Height 175.3 cm (5' 9) 12/19/2021 1:44 PM PHOTOENGRAVING PROOFER Body Mass Index 26.29 12/08/2021 8:10 AM PHOTOENGRAVING PROOFER Plan of Treatment Health Maintenance Due Date [...] type, unspecified whether angina present, unspecified whether [place] or transplanted heart from Last 3 Months or Most Recently Relevant to Health Maintenance Results * (ABNORMAL) LIPID PANEL W REFLEX MEASURED LDL (03/16/2022 8:51 AM CDT) CHOLESTEROL,TOTAL 104 100 - 199 mg/dL 03/16/2022 5:13 PM CDT [facility] TRIGLYCERIDES 69 <150 mg/dL 03/16/2022 5:13 PM CDT [facility] HDL CHOLESTEROL 40(L) >40 mg/dL 5:13 PM CDT [facility] NON-HDL CHOLESTEROL 64 <145 mg/dl 03/16/2022 5:13 PM CDT [facility] CHOL/HDL RATIO 2.60 <4.50 03/16/2022 5:13 PM CDT [facility] LDL CHOLESTEROL 50 <=130 mg/dL 03/16/2022 5:13 PM CDT [facility] VLDL CHOLESTEROL 14 <=30 mg/dL 03/16/2022 5:13 PM CDT [facility] PROVIDER ORDERED STATUS FASTING 03/16/2022 5:13 PM CDT [facility] Blood BLOOD SPECIMEN / Unknown Venipuncture / Unknown 03/16/2022 8:51 AM CDT 03/16/2022 8:52 AM CDT Tima Escobar MD CHEMISTRY [facility] [address] [place] [address], from Last 3 Months or Most Recently Relevant to Health Maintenance Care Teams Hospital Plan Administrator Relationship Specialty Start Date End Date Thang Baez MD [address] [place] [phone] PCP - General 12/12/18
--- OUTSIDE RECORDS SUMMARY | 2024-10-14 13:22 | XMS_ITS | Data Portability ---
Author Organization [facility] Address [address] [place] [address] Assessment No assessment recorded. Plan of Treatment Reminders Order Date Submit Date Provider Last Modified By Organization Details Last Modified Time Details Appointments None recorded . Lab PSA, serum or plasma 023 02/07/20 [facility], [address], [place], [address], 11:56:36 PSA, total, serum or plasma 023 02/07/20 [facility], [address], [place], [address], 12:26:59 Referral None recorded . Procedures None recorded . Surgeries None recorded . Imaging None recorded . Medication Orders None recorded . Patient TargetsNo targets recorded. Patient InstructionsNo instructions recorded. Reason for Referral None Reported. Results Created Date Observation Date Name Description Value Unit Range Abnormal Flag Note LastModifiedBy Organization Detail LastModifiedTime 02/07/2002/06/2023 PSA, serum or plasm a PSA 0.48 ng/mL 0-4.0 Not Available [facility] [address], [place], [address], 02/06/2023 11:56:11 Result Notes None recorded. Procedures Surgical History Date Name Laterality Status Provider Name and Address Organization Details Recorded Time 02/06/2023 POSTAL WORKER/blood draw completed Kevin Dang MD [address] [place] [address],[address], [place], [address], [facility] 02/06/2023 11:55:22 Imaging Results None recorded. Procedure Notes None recorded. Medical Equipment None Reported. Allergies Allergen ID Allergen Name Allergen Category Reaction Reaction Severity Criticality Documentation Date Start Date Code Code System Note Provider Name and Address Organization Details Recorded Time 828063 Zithromax medicatio n Not available Not available Not available 05/12/20202018 00294 4 RxNorm Not Available [facility] 0 00:48:51 Medications Name Sig Start Date Stop Date Status Note LastModified by Organization Details LastModified Time prednisone 20 mg tablet TAKE 1 TABLET BY MOUTH DAILY 02/06 completed Not Available Not Available Not Available omeprazole 40 mg capsule,del ayed release TAKE 1 CAPSULE BY MOUTH EVERY DAY active Not Available Not Available No t Available levothyroxi ne 100 mcg tablet TAKE 1 TABLET BY MOUTH EVERY MORNING BEFORE BREAKFAST . 02/06 completed Not Available Not Available Not Available levothyroxi ne 125 mcg tablet TAKE 1 TABLET BY MOUTH EVERY DAY 02/06 completed Not Available Not Available Not Available epinephrine 0.3 mg/0.3 mL injection, auto-inject or INJECT 0.3MG IN THE MUSCLE EVERY 5 TO 15 MINUTES NEEDED. DO NOT EXCEED 3 DOSES PER EPISODE active Not Available Not Available No t Available levothyroxi ne 112 mcg tablet active Not Available Not Available Not Available Ventolin HFA 90 mcg/actuati on aerosol inhaler INHALE 2 PUFFS BY MOUTH EVERY 4 HOURS active Not Available Not Available No t Available rosuvastati n 10 mg tablet active Not Available Not Available Not Available diclofenac 1 % topical gel APPLY TOPICALLY TO AFFECTED JOINT THREE TIMES DAILY NEEDED FOR ACUTE PAIN 02/06 completed Not Available Not Available Not Available Suboxone 8 mg-2 mg sublingual film USE 1 EVERY MORNING AND ONE-HALF EVERY EVENING active Not Available Not Available No t Available Paxlovid 300 mg (150 mg x 2)-100 mg tablets in a dose pack TAKE 2 PINK NIRMATREL VIR TABLETS AND 1 WHITE RITONAVIR TABLET TOGETHER TWICE DAILY FOR 5 DAYS 02/06 completed Not Available Not Available Not Available Vitals Date Recorded Body height Body mass index (BMI) Body weight Provider Name and Address Organization Details Last Updated DateTime 02/06/2023 175.26 cm 26.3 kg/m2 32869.44 g Kevin Dang MD [address] [facility] [address], [address] 02/06/2023 11:51:44 Social History Question Answer Notes LastModified by Organizat ion Details LastModified Time Tobacco Smoking Status Current Every Day Smoker Kevin Dang MD [address] [facility],[address], [address], [facility] 02/06/2023 11:54:29 What Is Your Level Of Alcohol Consumption? None Information not available 02/06/2023 What Is Your Level Of Caffeine Consumption? Moderate Information not available 02/06/2023 What Was The Date Of Your Most Recent Tobacco Screening? 02/06/2023 Information not available 02/06/2023 How Much Tobacco Do You Smoke? 2 PPW Information not available 02/06/2023 Do You Use Any Illicit Or Recreational Drugs? No Information not available 02/06/2023 Has Tobacco Cessation Counseling Been Provided? Yes Information not available 02/06/2023 On What Date Was Tobacco Cessation Counseling Provided? 02/06/2023 Information not available 02/06/2023 Do You Or Have You Ever Used Any Other Forms Of Tobacco Or Nicotine? No Information not available 02/06/2023 Sex: Unknown Functional Status None recorded. Mental Status None recorded. Family History Nothing Reported. Medical History Condition Response Other N High Blood Pressure N Kidney Stones N Lung Disease N Depression N GERD/Acid Reflux Y Sexually Transmitted Infection N Cancer N High Cholesterol Y Diabetes N Bleeding Disorder N Heart Disease N Past Encounters Encounter ID Performer Location Encounter Start Date Encounter Closed Date Diagnosis/Indication Diagnosis SNOMED-CT Code Diagnosis ICD10 Code [id number] Kevin Dang MD [facility] [address] [place] [address] 02/06/2023 11:17:40 02/08/2023 13:35:48 Prostate nodule 7324252482 91076 N40.2 Erectile dysfunction 860 961618 F52.21 Slowing of urinary stream 63176225 R39.12 Health Concerns Section Related Observation LastModified by Organization Detai ls LastModified Time None Recorded Concern Status LastModified by Organization Details LastModified Time None Recorded Advance Directives Directive None Recorded Payers Encounter Date Sequence Insurance Name Policy Number Policy Schmidt Covered Member ID Schmidt Member ID Guarantor Name 02/06/2023 1 [employer] - DOS PRIOR TO 2023 (MEDICAID REPLACEMENT - HMO) [id number] Bib Metzger [id number] Jeremy Metzger Notes Date Note Type Note Provider Name and Address Organization Details Recorded Time 02/06/2023 text/html 57 yo male with history of hyperlipidemia, IBS, + smoker and nodule on the prostate (Left apex - 5 mm nodule)TRUS bx - (08/04/19) - 17.4 gm - no cancerLeft lat base - HGPINRight lat mid - DILAN- remaining bx were aequzp75/5/20 - He presents for follow-up on prostate nodule. He voids every 2-3 hours during the day and 4x/night. He notes hesitancy and variable stream. He denies urgency or dysuria. He also reports trouble with erection (obtain and maintain erections) - + morning erection - denies pain or curvature with erections. 12/12/22 - He presents for follow-up on prostate nodule. He notes hesitancy with urination. He voids every 2-3 hours during the day and 2-3x/night. He also reports difficulty obtaining and maintaining erections.- PSA - 0.48 PSA - 0.45 (07/06/19)- 0.51 ()- 0.44 (09/12/22)- 0.48 (02/06/23) Kevin Dang MD [address] [place] [address],[address], [place], [address], [facility] 02/07/2023 21:26:59
== END 2024-10-12 07:53 | disposition home or self-care (01) ==
LOC: NFLDREF 10-14 13:20
PROVIDERS: PCP Family Medicine; Referring Provider Family Medicine; Visit Provider Family Medicine
DX: Z00.00 Encounter for general adult medical examination without abnormal findings (principal); E03.9 Hypothyroidism, unspecified; E78.5 Hyperlipidemia, unspecified; N42.89 Other specified disorders of prostate; Z12.5 Encounter for screening for malignant neoplasm of prostate
CPT/HCPCS: 80053; 80061; 84443; G0103